=== PATIENT | male | born 1955 | race Caucasian/White ===

== ENCOUNTER 2018-05-09 23:38 | Emergency (ER) | payer BC, OTHER ==
[2018-05-09 23:47] VITALS: BP 165/89
[2018-05-10] MEDS ORDERED: diphenhydrAMINE 25 MG CAP PO ONE ×2 (00:31→00:47)
--- NOTE | 2018-05-10 00:31 | EDPHY ---
H & P Stated Complaint: cough, chest congestion, SOB Time Seen by Provider: 05/10/18 00:08 HPI/ROS: Chief Complaint: Congestion, shortness of breath HPI: 63-year-old has had 1 week of congestion, occasional difficulty breathing. He just arrived here from [place]. He spends part of the year here. [place] staying [place] [address] near [place]. No fevers or chills. No cough. He has been using albuterol without significant relief. No leg pain or swelling. Patient states is worse when he lays down. Gets congestion tightness arms upper chest. He has not been taking any medicine other than occasional albuterol which is not providing any relief. No nausea or vomiting. ROS: 10 systems were reviewed and were negative except those elements noted in the HPI. PMH: Denies Social History: No smoking Family History: non-contributory Physical Exam: Gen: Awake, Alert, No Distress HEENT: Nose: no rhinorrhea Eyes: PERRLA, EOMI Mouth: Moist mucosa Neck: Supple, no JVD Chest: nontender, lungs clear to auscultation Heart: S1, S2 normal, no murmur Abd: Soft, non-tender, no guarding Back: no CVA tenderness, no midline tenderness Ext: no edema, non-tender Skin: no rash Neuro: CN II-XII intact, Sensation grossly intact, Strength 5/5 in bilateral upper and lower extremities - Personal History Current Tetanus Diphtheria and Acellular Pertussis (TDAP): Yes - Medical/Surgical History Hx Asthma: No Hx Chronic Respiratory Disease: No Hx Diabetes: No Hx Cardiac Disease: Yes Hx Renal Disease: No Hx Cirrhosis: No Hx Alcoholism: No Hx HIV/AIDS: No Hx Splenectomy or Spleen Trauma: No Other PMH: cardiac ablations and cardioverted x 4 - Social History Smoking Status: Never smoked Constitutional: Initial Vital Signs Temperature (C) 36.6 C 05/09/18 23:44 Heart Rate 66 05/09/18 23:44 Respiratory Rate 20 05/09/18 23:44 Blood Pressure 165/89 H 05/09/18 23:44 O2 Sat (%) 95 05/09/18 23:44 O2 Delivery Mode Room Air Allergies/Adverse Reactions: clarithromycin [From Biaxin] Allergy (Verified 05/09/18 23:43) Home Medications: Medication Instructions Recorded NK [No Known Home Meds] 05/09/18 Medical Decision Making ED Course/Re-evaluation: Well-appearing 63-year-old male with viral URI symptoms for the last week. Symptoms began before he came to [place]. For the last 2 nights he has been having difficulty breathing. This is occurring at lower elevations as well. Symptoms consistent with postnasal drip and possible laryngospasm. Lungs are perfectly clear. Normal vital signs and oxygen saturations. He has not been taking any medications. I have recommended [id number] cough and cold medications. Will given some Benadryl here to go home with. Referral for primary care follow-up. He has no cough. Lungs are clear. No hypoxemia. No indication for chest x-ray at this time. - Data Points Medications Given: Discontinued Medications Diphenhydramine HCl (Benadryl) 50 mg PO EDNOW ONE Stop: 05/10/18 00:32 Last Admin: 05/10/18 00:40 Dose: 50 mg Departure - Departure Disposition: Home, Routine, Self-Care Clinical Impression: Viral URI Condition: Good Instructions: Upper Respiratory Infection (ED), Cold Symptoms (ED) Additional Instructions: You may use [id number] cough and cold medications per package instructions. Follow up with primary care physician in 2-3 days if symptoms are not improving. Return to the emergency department for increasing shortness of breath, fevers, chills, cough, or any other concerns. Referrals: Laura Zamudio MD [Medical Doctor] - As per Instructions
== END 2018-05-10 00:43 | disposition home or self-care (01) ==
DX: J06.9 Acute upper respiratory infection, unspecified (principal)